=== PATIENT | male | born 1990 | race African-American/Black ===

== ENCOUNTER 2020-06-29 15:54 | Emergency (ER) | payer BC ==
[~2020-06-29] VITALS: Ht 185.4 cm; Wt 102.1 kg
[2020-06-29 16:23] LABS: URINE BILIRUBIN NEGATIVE (Negative); URINE BLOOD 3+ (Negative); URINE CLARITY CLEAR; URINE COLOR YELLOW; URINE GLUCOSE-RANDOM* NEGATIVE (Negative); URINE KETONES NEGATIVE (Negative); URINE NITRITE-REFLEX NEGATIVE (Negative); URINE PROTEIN (DIPSTICK) NEGATIVE (Negative); URINE UROBILINOGEN 0.2 E.U./dl (0.2-1.0)
[2020-06-29 16:24] LABS: URINE LEUKOCYTES-REFLEX 3+ (Negative)
[2020-06-29 16:51] LABS: CASTS None Seen /LPF (None Seen); SQUAMOUS 0-3 Few /LPF (0-3)
[2020-06-29 16:52] LABS: BACTERIA-REFLEX 1-9 Few /HPF (None Seen); CRYSTALS None Seen /LPF (None Seen); URINE RBC 0-2 Rare /HPF (0-2); URINE WBC-REFLEX 6-15 Few /HPF (0-5)
[2020-06-29 16:53] LABS: WBC CLUMPS Few (None Seen)
[2020-06-29 18:31] VITALS: BP 123/90
== END 2020-06-29 18:32 | disposition home or self-care (01) ==
LOC: ER 15:54
PROVIDERS: Physician Assistant
DX: N48.89 Other specified disorders of penis (principal); Z20.2 Contact with and (suspected) exposure to infections with a predominantly sexual mode of transmission